=== PATIENT | female | born 1980 | race Caucasian/White ===

== ENCOUNTER 2019-12-14 08:19 | Inpatient (IN) ==
[2019-12-14 09:05] LABS: BASOPHILS % (AUTO) 0.5 % (0.2-1.0); HEMATOCRIT 47.4 % (36.0-47.0); HEMOGLOBIN 16.1 g/dL (12.0-16.0); LYMPHOCYTES # (AUTO) 1.2 X10^3/uL (1.3-2.9); LYMPHOCYTES % (AUTO) 20.8 % (21.0-51.0); MEAN CORPUSCULAR HEMOGLOBIN 30.1 pg (27.0-34.0); MEAN CORPUSCULAR HGB CONC 33.9 g/dL (33.0-35.0); MEAN CORPUSCULAR VOLUME 88.7 fL (80.0-100.0); MEAN PLATELET VOLUME 6.8 fL (7.4-11.0); MONOCYTES # (AUTO) 0.5 x10^3/uL (0.3-0.8); MONOCYTES % (AUTO) 7.8 % (0.0-13.0); NEUTROPHILS # (AUTO) 4.1 x10^3/uL (2.2-4.8); NEUTROPHILS % (AUTO) 70.9 % (42.0-75.0); PLATELET COUNT 262 X10^3/uL (150.0-450.0); RED BLOOD COUNT 5.35 X10^6/uL (3.5-5.4); WHITE BLOOD COUNT 5.8 X10^3/uL (3.6-10.0)
[2019-12-14 09:12] LABS: ALANINE AMINOTRANSFERASE 38 Units/L (12-78); ALBUMIN 3.6 g/dL (3.4-5.0); ALKALINE PHOSPHATASE 77 Units/L (46-116); ASPARTATE AMINO TRANSFERASE 30 Units/L (15-37); BLOOD UREA NITROGEN 10 mg/dL (7-18); CALCIUM 8.9 mg/dL (8.5-10.1); CARBON DIOXIDE 24.9 mmol/L (21-32); CHLORIDE 101 mmol/L (98-107); CREATININE 0.87 mg/dL (0.55-1.02); SODIUM 139 mmol/L (136-145); TOTAL PROTEIN 8.8 g/dL (6.4-8.2); eGFR NON BLACK RACES > 60 (>60)
[2019-12-14] MEDS ORDERED: PULMICORT NEB TX 0.5 MG NEB ONE (09:26)
--- NOTE | 2019-12-14 09:28 | RAD ---
HISTORYCOVID+STUDYCHEST, PA/LAT ADULTCOMPARISONNoneTECHNIQUETwo-view chestFINDINGSPatchy left perihilar opacity. Cardiac and mediastinal contours appear normal. No pleural effusion or pneumothorax.IMPRESSIONPatchy left parahilar opacity consistent with pneumonia such as covid 19.Electronically signed by: Balaji Johnson (Dec 14, 2019 09:26:38)
[2019-12-14] MEDS: PULMICORT NEB TX 0.5 MG NEB SCH ×2 (09:30→20:30)
[2019-12-14] MEDS: SOLU-Medrol 40 MG VIAL IVP SCH ×3 (10:00→21:47)
[2019-12-14] MEDS ORDERED: REMDESIVIR 200 MG in NS 250 ML IV 250 ML IV SCH (10:00)
[2019-12-14] MEDS ORDERED: NS 250 ML IV 250 ML IV ONE (10:08)
--- NOTE | 2019-12-14 10:28 | DR.H&P ---
H&P History & Physical for Day of: H&P Date: 12/14/19 Chief Complaint Chief Complaint: SHORTNESS OF BREATH GENERALIZED WEAKNESS Allergies Allergies Allergy/AdvReac Type Severity Reaction Status Date / Time No Known Drug Allergies Allergy Verified 12/14/19 09:19 [NKDA] History of Present Illness History of Present Illness: PT IS A 39 Y/O F DIRECTLY ADMITTED FROM [facility] FOR COVID19 PNEUMONIA AND HYPOXIA. SHE REPORTS TESTING POSITIVE ON SUNDAY. SINCE THEN HER SYMPTOMS OF COUGH, SHORTNESS OF BREATH, AND GENERALIZED WEAKNESS HAS BEEN GETTING WORSE. LABS/IMAGING: WBC 5.8, HGB 16.1, PLT 262, NA 139, K 3.2, CR 0.87, GLUC 109, CRP 56, CXR: Patchy left parahilar opacity consistent with pneumonia such as covid 19. PT IS REQUIRING 2L SUPPLEMENTAL O2. WILL GET CTA OF CHEST. WILL START PATIENT ON REMDESEVIR, SOLUMEDROL 80MG Q8H, DUONEBS, PULMICORT, RT, PNEUMONIA PROTOCOL. PT IS HYPOKALEMIC, REPLETE PER PROTOCOL. WILL CONTINUE TO MONITOR AND FOLLOW UP LABS/IMAGING IN THE MORNING. Social History Does patient currently use any type of tobacco product: No Have you used tobacco products in the last 12 months: No Type of Tobacco Use: None Medications Home Medications: No Known Drug Allergies [NKDA] Allergy (Verified 12/14/19 09:19) Labs Result Diagrams: 12/14/19 08:50 12/14/19 08:50 Labs: Laboratory WBC 5.8 X10^3/uL (3.6-10.0) 12/14/19 08:50 RBC 5.35 X10^6/uL (3.5-5.4) 12/14/19 08:50 Hgb 16.1 g/dL (12.0-16.0) H 12/14/19 08:50 Hct 47.4 % (36.0-47.0) H 12/14/19 08:50 MCV 88.7 fL (80.0-100.0) 12/14/19 08:50 MCH 30.1 pg (27.0-34.0) 12/14/19 08:50 MCHC 33.9 g/dL (33.0-35.0) 12/14/19 08:50 RDW 13.0 % (11.6-16.5) 12/14/19 08:50 Plt Count 262 X10^3/uL (150.0-450.0) 12/14/19 08:50 MPV 6.8 fL (7.4-11.0) L 12/14/19 08:50 Neut % (Auto) 70.9 % (42.0-75.0) 12/14/19 08:50 Lymph % (Auto) 20.8 % (21.0-51.0) L 12/14/19 08:50 Rankin % (Auto) 7.8 % (0.0-13.0) 12/14/19 08:50 Eos % (Auto) 0.0 % (0.9-2.9) L 12/14/19 08:50 Baso % (Auto) 0.5 % (0.2-1.0) 12/14/19 08:50 Neut # (Auto) 4.1 x10^3/uL (2.2-4.8) 12/14/19 08:50 Lymph # (Auto) 1.2 X10^3/uL (1.3-2.9) L 12/14/19 08:50 Rankin # (Auto) 0.5 x10^3/uL (0.3-0.8) 12/14/19 08:50 Eos # (Auto) 0.0 x10^3/uL (0.0-0.2) 12/14/19 08:50 Baso # (Auto) 0.0 X10^3/uL (0.0-0.1) 12/14/19 08:50 Absolute Nucleated RBC 0.0 /100WBC 12/14/19 08:50 Sodium 139 mmol/L (136-145) 12/14/19 08:50 Corrected Sodium TNP 12/14/19 08:50 Potassium 3.2 mmol/L (3.5-5.1) L 12/14/19 08:50 Chloride 101 mmol/L (98-107) 12/14/19 08:50 Carbon Dioxide 24.9 mmol/L (21-32) 12/14/19 08:50 BUN 10 mg/dL (7-18) 12/14/19 08:50 Creatinine 0.87 mg/dL (0.55-1.02) 12/14/19 08:50 Est GFR (MDRD) Af Amer > 60 (>60) 12/14/19 08:50 Est GFR (MDRD) Non-Af > 60 (>60) 12/14/19 08:50 Glucose 109 mg/dL (65-99) H 12/14/19 08:50 Calcium 8.9 mg/dL (8.5-10.1) 12/14/19 08:50 Corrected Calcium TNP 12/14/19 08:50 Ferritin 99 ng/mL (8-252) 12/14/19 08:50 Total Bilirubin 0.30 mg/dL (0.2-1.0) 12/14/19 08:50 AST 30 Units/L (15-37) 12/14/19 08:50 ALT 38 Units/L (12-78) 12/14/19 08:50 Alkaline Phosphatase 77 Units/L (46-116) 12/14/19 08:50 C-Reactive Protein 56.80 mg/L (0-3.0) H 12/14/19 08:50 Total Protein 8.8 g/dL (6.4-8.2) H 12/14/19 08:50 Albumin 3.6 g/dL (3.4-5.0) 12/14/19 08:50 Globulin 5.2 g/dL (2.5-4.5) H 12/14/19 08:50 Albumin/Globulin Ratio 0.7 Ratio (1.1-2.1) L 12/14/19 08:50 Review of Systems Constitutional: Chills and Weakness; denies Fever Eyes: No Symptoms Reported ENT: No Symptoms Reported Respiratory: Cough and Shortness of Breath Cardiovascular: No Symptoms Reported Gastrointestinal: No Symptoms Reported Genitourinary: No Symptoms Reported Musculoskeletal: No Symptoms Reported Skin: No Symptoms Reported Neurological: No Symptoms Reported Physical Exam Vital Signs: Temperature 98.2 F Pulse Rate 94 Respiratory Rate 20 Blood Pressure 148/82 O2 Sat by Pulse Oximetry 96 Oriented: Normal Eyes: Normal Ear: Normal Nose: Normal Throat: Normal Respiratory: Diminished Throughout, RLL Rales and LLL Rales Cardiovascular: Normal : Normal Auscultation: Bowel Sounds: Normal Palpation: Normal Tenderness: Normal Skin: Normal Musculoskeletal: Normal Psychiatric: Normal Mood Description: Calm and Appropriate Affect: Normal Speech Pattern: Clear and Appropriate Assessment/Plan (1) Pneumonia due to COVID-19 virus: Status: Acute Plan: IV Remdesivir, Solumedrol, Bronchodilators. Supplemental O2 (2) Hypokalemia: Status: Acute Plan: Replete per protocol Review H&P Reviewed: Yes Patient was examined?: Yes
[2019-12-14 10:37] VITALS: BMI 32.1
[2019-12-14] MEDS ORDERED: TUSSIONEX PENNKINETIC SUSP PO PRN ×2 (11:00→11:06)
[2019-12-14] MEDS ORDERED: POTASSIUM CHL 60 MEQ/NS 0.45% 500 ML IV PRN (11:42)
[2019-12-14] MEDS ORDERED: POTASSIUM CHL 40 MEQ/NS 0.45% 500 ML IV PRN (11:42)
[2019-12-14] MEDS ORDERED: MICRO K EXTEN CAP 10 MEQ PO PRN (11:42)
[2019-12-14] MEDS ORDERED: K-DUR TAB 20 MEQ PO PRN (11:42)
[2019-12-14] MEDS ORDERED: K-RIDER 10 MEQ/NS 100 ML 10 MEQ/100 ML BAG IV PRN (11:42)
[2019-12-14] MEDS ORDERED: POTASSIUM CHLORIDE LIQ 20 MEQ UDC PO PRN (11:42)
[2019-12-14] MEDS ORDERED: KLOR-CON PO PRN (11:42)
[2019-12-14] MEDS: DUONEB 0.5 MG/3 MG (3 mL) NEB SCH ×2 (13:30→20:30)
--- NOTE | 2019-12-14 16:10 | CT ---
HISTORYR/O PESTUDYCTA CHESTCOMPARISONNoneTECHNIQUEMultiple axial images of the chest were obtained from the thoracic inlet to the upper abdomen after the administration of IV contrast. 3D reconstructions utilizing axial MIPS imaging was performed and reviewed. Dose reduction techniques including Automated Exposure Control (AEC) and adjustment of mA and kV were utilized.FINDINGSThe mediastinum does not demonstrate significant pathological lymphadenopathy. There is no paracardial effusion observed. The thoracic aorta is normal in its contour without evidence for aneurysmal dilatation. The central pulmonary arterial system does not demonstrate central filling defects to suggest pulmonary emboli. The more distal branches are not well evaluated due to timing of the bolus.Evaluation of the lung parenchyma demonstrates a focal area of consolidation in the left lower lobe with some ground-glass opacities in the right lung base and scattered throughout the upper lobes bilaterally. These findings are compatible pneumonia possibly due to atypical viral etiologies although clinical correlation is requested. No pulmonary nodule or mass can be identified. The bony thorax is unremarkable in its appearance . The visualized portions of the upper abdomen are grossly unremarkable .IMPRESSIONMultifocal pneumonia as above. No pulmonary embolus can be identified although the more distal branches are not well evaluated due to timing of the bolus..Electronically signed by: RADHA YAO (Dec 14, 2019 16:08:33)
[2019-12-15 04:32] LABS: ABG ALLEN TEST POS; ABG BASE EXCESS -0.2 mmol/L (-2.0-2.0)
[2019-12-15] MEDS: DUONEB 0.5 MG/3 MG (3 mL) NEB SCH ×3 (05:02→21:32)
[2019-12-15] MEDS: SOLU-Medrol 40 MG VIAL IVP SCH ×3 (05:08→21:22)
[2019-12-15 05:25] LABS: BASOPHILS % (AUTO) 0.1 % (0.2-1.0); HEMATOCRIT 44.6 % (36.0-47.0); HEMOGLOBIN 14.8 g/dL (12.0-16.0); LYMPHOCYTES # (AUTO) 0.7 X10^3/uL (1.3-2.9); LYMPHOCYTES % (AUTO) 11.4 % (21.0-51.0); MEAN CORPUSCULAR HGB CONC 33.2 g/dL (33.0-35.0); MEAN CORPUSCULAR VOLUME 90.3 fL (80.0-100.0); MEAN PLATELET VOLUME 7.6 fL (7.4-11.0); MONOCYTES # (AUTO) 0.3 x10^3/uL (0.3-0.8); MONOCYTES % (AUTO) 4.2 % (0.0-13.0); NEUTROPHILS # (AUTO) 5.4 x10^3/uL (2.2-4.8); NEUTROPHILS % (AUTO) 84.3 % (42.0-75.0); PLATELET COUNT 271 X10^3/uL (150.0-450.0); RED BLOOD COUNT 4.93 X10^6/uL (3.5-5.4); RED CELL DISTRIBUTION WIDTH 12.9 % (11.6-16.5); WHITE BLOOD COUNT 6.4 X10^3/uL (3.6-10.0)
--- NOTE | 2019-12-15 05:43 | RAD ---
HISTORYPNEUMONIASTUDYCHEST, 1 [id number]/2020FINDINGSThe trachea is midline. The cardiac silhouette is unremarkable. Left lower lobe pneumonia. No pneumothorax.. The bony thorax is unremarkable.IMPRESSIONLeft lower lobe pneumoniaElectronically signed by: Fernando Hussein (Dec 15, 2019 05:41:48)
[2019-12-15 05:59] LABS: ALANINE AMINOTRANSFERASE 37 Units/L (12-78); ALKALINE PHOSPHATASE 72 Units/L (46-116); ASPARTATE AMINO TRANSFERASE 29 Units/L (15-37); BLOOD UREA NITROGEN 13 mg/dL (7-18); CALCIUM 8.8 mg/dL (8.5-10.1); CARBON DIOXIDE 25.1 mmol/L (21-32); CHLORIDE 103 mmol/L (98-107); COR CA(FOR HYPOALB) 9.6 mg/dL (8.5-10.1); COR NA(FOR HYPERGLY) 139 mmol/L (136-145); CREATININE 0.76 mg/dL (0.55-1.02); SODIUM 137 mmol/L (136-145); eGFR NON BLACK RACES > 60 (>60)
[2019-12-15] MEDS: PULMICORT NEB TX 0.5 MG NEB SCH ×2 (08:26→21:31)
[2019-12-15] MEDS: TESSALON PERLES PO SCH ×3 (10:36→21:22)
[2019-12-15] MEDS: LEVAQUIN PREMIX IV 750 MG 750 MG/150 ML BAG IV SCH (10:36)
[2019-12-15] MEDS: LOVENOX INJ 40 MG SYR SC SCH (10:36)
--- NOTE | 2019-12-15 11:02 | PCM.PROG ---
Progress Note - Progress Note for Day of Date of Exam: 12/15/19 - Subjective Subjective: IS BEING TREATED FOR PNEUMONIA DUE TO COVID-19. TODAY, SHE IS ALERT AND ORIENTED, LYING IN BED ON MORNING ROUNDS. SHE CONTINUES WITH COMPLAINTS OF COUGH, SHORTNESS OF BREATH, AND WEAKNESS THIS MORNING. SHE IS CURRENTLY UTILIZING OXYGEN VIA NASAL CANNULA AT 2 LITERS/MINUTE. ON EXAMINATION, HEART IS REGULAR IN RATE AND RHYTHM. BILATERAL LUNGS ARE NOTED WITH SCATTERED WHEEZING THROUGHOUT. ABDOMEN IS ROUND, SOFT, AND NON-TENDER WITH NORMAL BOWEL SOUNDS NOTED IN ALL QUADRANTS. HIS VITALS THIS MORNING ARE: 98.9-92-20-97%-130/76. LABS WERE OBTAINED. ABNORMAL LAB VALUES INCLUDE THE FOLLOWING: GLUCOSE 163, CRP 50.50, ALBUMIN 3.0, GLOBULIN 5.0. ABG OBTAINED THIS MORNING AND REVEALED: PH 7.420, PC02 37.0, P02 70, HC03 24.0, 02 SAT 94, FI02 28.0. A CHEST XRAY WAS OBTAINED THIS MORNING AND REVEALED: Left lower lobe pneumonia. A CHEST CTA WAS OBTAINED ON ADMISSION AND REVEALED: Multifocal pneumonia. No pulmonary embolus can be identified although the more distal branches are not well evaluated due to timing of the bolus. SHE IS CURRENTLY RECEIVING LEVAQUIN 750MG IV DAILY, REMDESIVIR 250MG IV DAILY, ACTEMRA 400MG IV X 1 DOSE, DUONEBS TID, PULMICORT NEBS BID, TESSALON PERLES 200MG PO TID, TUSSIONEX 5ML PO Q12H, SOLU-MEDROL 80MG IV Q8H, AND THE POTASSIUM PROTOCOLS. WE WILL CON TINUE WITH CURRENT PLAN OF CARE TODAY. OTHERWISE, WE PLAN TO FOLLOW UP WITH AM LABS AND CHEST XRAY AND CONTINUE TO MONITOR. - Past Medical Family Social History Past Med/Fam/Surg Hx: No changes since H&P Allergies: Allergies No Known Drug Allergies [NKDA] Allergy (Verified 12/14/19 09:19) - Review of Systems ROS: No change since H&P - Vital Signs and I&O's Vital Signs: Temperature 98.9 F Pulse Rate 100 Respiratory Rate 20 Blood Pressure 128/78 O2 Sat by Pulse Oximetry 93 Intake and Output: Intake & Output 12/12/19 12/13/19 12/14/19 12/15/19 11:59 11:59 11:59 11:59 Intake Total 5 / 925 Balance / 5 - Physical Exam Oriented: Normal Eyes: Normal Ear: Normal Nose: Normal Throat: Normal Respiratory: Generalized, Diminished, Wheezes Cardiovascular: Normal : Normal Auscultation: Bowel Sounds: Normal Palpation: Normal Tenderness: Normal Skin: Normal Musculoskeletal: Normal Psychiatric: Normal Mood Description: Calm, Appropriate Affect: Normal Speech Pattern: Clear, Appropriate - Laboratory and Diagnostics Result Diagrams: 12/15/19 04:23 12/15/19 04:23 Labs: Laboratory WBC 6.4 X10^3/uL (3.6-10.0) 12/15/19 04:23 RBC 4.93 X10^6/uL (3.5-5.4) 12/15/19 04:23 Hgb 14.8 g/dL (12.0-16.0) 12/15/19 04:23 Hct 44.6 % (36.0-47.0) 12/15/19 04:23 MCV 90.3 fL (80.0-100.0) 12/15/19 04:23 MCH 30.0 pg (27.0-34.0) 12/15/19 04:23 MCHC 33.2 g/dL (33.0-35.0) 12/15/19 04:23 RDW 12.9 % (11.6-16.5) 12/15/19 04:23 Plt Count 271 X10^3/uL (150.0-450.0) 12/15/19 04:23 MPV 7.6 fL (7.4-11.0) 12/15/19 04:23 Neut % (Auto) 84.3 % (42.0-75.0) H 12/15/19 04:23 Lymph % (Auto) 11.4 % (21.0-51.0) L 12/15/19 04:23 Trinity % (Auto) 4.2 % (0.0-13.0) 12/15/19 04:23 Eos % (Auto) 0.0 % (0.9-2.9) L 12/15/19 04:23 Baso % (Auto) 0.1 % (0.2-1.0) L 12/15/19 04:23 Neut # (Auto) 5.4 x10^3/uL (2.2-4.8) H 12/15/19 04:23 Lymph # (Auto) 0.7 X10^3/uL (1.3-2.9) L 12/15/19 04:23 Trinity # (Auto) 0.3 x10^3/uL (0.3-0.8) 12/15/19 04:23 Eos # (Auto) 0.0 x10^3/uL (0.0-0.2) 12/15/19 04:23 Baso # (Auto) 0.0 X10^3/uL (0.0-0.1) 12/15/19 04:23 Absolute Nucleated RBC 0.1 /100WBC 12/15/19 04:23 Sample Site Lr 12/15/19 05:00 ABG pH 7.420 (7.35-7.45) 12/15/19 05:00 ABG pCO2 37.0 mmHg (35.0-45.0) 12/15/19 05:00 ABG pO2 70.0 mmHg (80.0-100.0) L 12/15/19 05:00 ABG HCO3 24.0 mmol/L (22-26) 12/15/19 05:00 ABG O2 Saturation 94.0 % (90-100) 12/15/19 05:00 ABG Base Excess -0.2 mmol/L (-2.0-2.0) 12/15/19 05:00 Baljeet Test Pos 12/15/19 05:00 A-a Gradient 83.0 mmHg 12/15/19 05:00 FiO2 28.0 12/15/19 05:00 Blood Gas Comments Augustus well sw 12/15/19 05:00 Sodium 137 mmol/L (136-145) 12/15/19 04:23 Corrected Sodium 139 mmol/L (136-145) 12/15/19 04:23 Potassium 3.9 mmol/L (3.5-5.1) 12/15/19 04:23 Chloride 103 mmol/L (98-107) 12/15/19 04:23 Carbon Dioxide 25.1 mmol/L (21-32) 12/15/19 04:23 BUN 13 mg/dL (7-18) 12/15/19 04:23 Creatinine 0.76 mg/dL (0.55-1.02) 12/15/19 04:23 Est GFR (MDRD) Af Amer > 60 (>60) 12/15/19 04:23 Est GFR (MDRD) Non-Af > 60 (>60) 12/15/19 04:23 Glucose 163 mg/dL (65-99) H 12/15/19 04:23 Calcium 8.8 mg/dL (8.5-10.1) 12/15/19 04:23 Corrected Calcium 9.6 mg/dL (8.5-10.1) 12/15/19 04:23 Magnesium 2.0 mg/dL (1.7-2.9) 12/15/19 04:23 Ferritin 99 ng/mL (8-252) 12/14/19 08:50 Total Bilirubin 0.20 mg/dL (0.2-1.0) 12/15/19 04:23 AST 29 Units/L (15-37) 12/15/19 04:23 ALT 37 Units/L (12-78) 12/15/19 04:23 Alkaline Phosphatase 72 Units/L (46-116) 12/15/19 04:23 C-Reactive Protein 50.50 mg/L (0-3.0) H 12/15/19 04:23 Total Protein 8.0 g/dL (6.4-8.2) 12/15/19 04:23 Albumin 3.0 g/dL (3.4-5.0) L 12/15/19 04:23 Globulin 5.0 g/dL (2.5-4.5) H 12/15/19 04:23 Albumin/Globulin Ratio 0.6 Ratio (1.1-2.1) L 12/15/19 04:23 - Plan (1) Pneumonia due to COVID-19 virus Status: Acute Plan: LEVAQUIN 750MG IV DAILY, REMDESIVIR 250MG IV DAILY, ACTEMRA 400MG IV X 1 DOSE, DUONEBS TID, PULMICORT NEBS BID, TESSALON PERLES 200MG PO TID, TUSSIONEX 5ML PO Q12H, SOLU-MEDROL 80MG IV Q8H, AND THE POTASSIUM PROTOCOLS. (2) Hypokalemia Status: Acute Plan: Replete per protocol
[2019-12-15] MEDS: TUSSIONEX PENNKINETIC SUSP PO SCH ×2 (11:35→21:22)
[2019-12-15] MEDS ORDERED: ACTEMRA 400 MG in NS 100 ML IV 80 ML IV SCH (14:00)
[2019-12-15] MEDS: REMDESIVIR 100 MG in NS 250 ML IV 250 ML IV SCH (15:12)
[2019-12-15] MEDS: PATIENT'S HOME MEDICATION PV SCH (21:20)
[2019-12-15] MEDS: PROGESTERONE MICRONIZED 400 MG PO SCH (21:22)
[2019-12-16 05:13] LABS: BASOPHILS % (AUTO) 0.1 % (0.2-1.0); HEMOGLOBIN 14.7 g/dL (12.0-16.0); LYMPHOCYTES # (AUTO) 0.9 X10^3/uL (1.3-2.9); LYMPHOCYTES % (AUTO) 10.8 % (21.0-51.0); MEAN CORPUSCULAR HEMOGLOBIN 30.1 pg (27.0-34.0); MEAN CORPUSCULAR HGB CONC 33.4 g/dL (33.0-35.0); MEAN CORPUSCULAR VOLUME 89.9 fL (80.0-100.0); MEAN PLATELET VOLUME 7.4 fL (7.4-11.0); MONOCYTES # (AUTO) 0.4 x10^3/uL (0.3-0.8); MONOCYTES % (AUTO) 5.3 % (0.0-13.0); NEUTROPHILS # (AUTO) 6.7 x10^3/uL (2.2-4.8); NEUTROPHILS % (AUTO) 83.8 % (42.0-75.0); PLATELET COUNT 318 X10^3/uL (150.0-450.0); RED CELL DISTRIBUTION WIDTH 12.9 % (11.6-16.5)
[2019-12-16 05:28] LABS: ALANINE AMINOTRANSFERASE 83 Units/L (12-78); ALBUMIN 2.8 g/dL (3.4-5.0); ALKALINE PHOSPHATASE 74 Units/L (46-116); ASPARTATE AMINO TRANSFERASE 56 Units/L (15-37); BLOOD UREA NITROGEN 17 mg/dL (7-18); CALCIUM 8.8 mg/dL (8.5-10.1); CARBON DIOXIDE 25.9 mmol/L (21-32); CHLORIDE 104 mmol/L (98-107); COR CA(FOR HYPOALB) 9.8 mg/dL (8.5-10.1); COR NA(FOR HYPERGLY) 139 mmol/L (136-145); CREATININE 0.71 mg/dL (0.55-1.02); SODIUM 138 mmol/L (136-145); TOTAL PROTEIN 7.7 g/dL (6.4-8.2); eGFR NON BLACK RACES > 60 (>60)
[2019-12-16] MEDS: TESSALON PERLES PO SCH ×3 (06:05→22:05)
[2019-12-16] MEDS: SOLU-Medrol 40 MG VIAL IVP SCH ×3 (06:05→22:05)
--- NOTE | 2019-12-16 06:06 | RAD ---
HISTORYSOBSTUDYCHEST, 1 [id number] view of the chestFINDINGSCardiac and mediastinal contours are within normal limits. Stable bilateral airspace disease, worse in the left lower lung. No pleural effusion or pneumothorax.IMPRESSIONNo significant change in airspace disease consistent with pneumonia.Electronically signed by: Balaji Johnson (Dec 16, 2019 06:05:24)
[2019-12-16] MEDS: DUONEB 0.5 MG/3 MG (3 mL) NEB SCH ×3 (06:25→21:05)
[2019-12-16] MEDS: PULMICORT NEB TX 0.5 MG NEB SCH ×2 (09:15→21:10)
[2019-12-16] MEDS: ESTRACE PO SCH (09:27)
[2019-12-16] MEDS: LEVAQUIN PREMIX IV 750 MG 750 MG/150 ML BAG IV SCH (09:28)
[2019-12-16] MEDS: LOVENOX INJ 40 MG SYR SC SCH (09:28)
[2019-12-16] MEDS: TUSSIONEX PENNKINETIC SUSP PO SCH ×2 (09:29→22:05)
[2019-12-16] MEDS: REMDESIVIR 100 MG in NS 250 ML IV 250 ML IV SCH (11:00)
--- NOTE | 2019-12-16 20:29 | PCM.PROG ---
Progress Note - Progress Note for Day of Date of Exam: 12/16/19 - Subjective Subjective: IS BEING TREATED FOR PNEUMONIA DUE TO COVID-19. TODAY, SHE IS ALERT AND ORIENTED, LYING IN BED ON MORNING ROUNDS. SHE CONTINUES WITH COMPLAINTS OF COUGH, SHORTNESS OF BREATH, AND WEAKNESS THIS MORNING. SHE DENIES SIGNIFICANT IMPROVEMENT IN SYMPTOMS SINCE ONE DAY PRIOR. SHE IS CURRENTLY UTILIZING OXYGEN VIA NASAL CANNULA AT 2 LITERS/MINUTE. ON EXAMINATION, HEART IS REGULAR IN RATE AND RHYTHM. BILATERAL LUNGS ARE NOTED WITH SCATTERED WHEEZING THROUGHOUT. ABDOMEN IS ROUND, SOFT, AND NON-TENDER WITH NORMAL BOWEL SOUNDS NOTED IN ALL QUADRANTS. HIS VITALS THIS MORNING ARE: 98.9-92-20-97%-130/76. LABS WERE OBTAINED. ABNORMAL LAB VALUES INCLUDE THE FOLLOWING: GLUCOSE 145, AST 56, ALT 83, CRP 17.90, ALBUMIN 2.8, GLOBULIN 4.9. A CHEST XRAY WAS OBTAINED THIS MORNING AND REVEALED: Cardiac and mediastinal contours are within normal limits. Stable bilateral airspace disease, worse in the left lower lung. No pleural effusion or pneumothorax. SHE IS CURRENTLY RECEIVING LEVAQUIN 750MG IV DAILY, REMDESIVIR 100MG IV DAILY, DUONEBS TID, PULMICORT NEBS BID, TESSALON PERLES 200MG PO TID, TUSSIONEX 5ML PO Q12H, SOLU-MEDROL 80MG IV Q8H, AND THE POTASSIUM PROTOCOLS. WE WILL CONTINUE WITH CURRENT PLAN OF CARE TODAY. OTHERWISE, WE PLAN TO FOLLOW UP WITH AM LABS AND CHEST XRAY AND CONTINUE TO MONITOR. - Past Medical Family Social History Past Med/Fam/Surg Hx: No changes since H&P Allergies: Allergies No Known Drug Allergies [NKDA] Allergy (Verified 12/14/19 09:19) - Review of Systems ROS: No change since H&P - Vital Signs and I&O's Vital Signs: Temperature 98.3 F Pulse Rate 85 Respiratory Rate 20 Blood Pressure 134/76 O2 Sat by Pulse Oximetry 91 Intake and Output: Intake & Output 12/14/19 12/15/19 12/16/19 12/17/19 11:59 11:59 11:59 11:59 Intake Total 925 / 925 3494 / 3494 1919 Balance 925 / 925 3494 / 3494 1919 - Physical Exam Oriented: Normal Eyes: Normal Ear: Normal Nose: Normal Throat: Normal Respiratory: Generalized, Diminished, Wheezes Cardiovascular: Normal : Normal Auscultation: Bowel Sounds: Normal Tenderness: Normal Skin: Normal Musculoskeletal: Normal Psychiatric: Normal Mood Description: Calm, Appropriate Affect: Normal Speech Pattern: Clear, Appropriate - Laboratory and Diagnostics Result Diagrams: 12/16/19 04:40 12/16/19 04:40 Labs: Laboratory WBC 8.0 X10^3/uL (3.6-10.0) 12/16/19 04:40 RBC 4.90 X10^6/uL (3.5-5.4) 12/16/19 04:40 Hgb 14.7 g/dL (12.0-16.0) 12/16/19 04:40 Hct 44.0 % (36.0-47.0) 12/16/19 04:40 MCV 89.9 fL (80.0-100.0) 12/16/19 04:40 MCH 30.1 pg (27.0-34.0) 12/16/19 04:40 MCHC 33.4 g/dL (33.0-35.0) 12/16/19 04:40 RDW 12.9 % (11.6-16.5) 12/16/19 04:40 Plt Count 318 X10^3/uL (150.0-450.0) 12/16/19 04:40 MPV 7.4 fL (7.4-11.0) 12/16/19 04:40 Neut % (Auto) 83.8 % (42.0-75.0) H 12/16/19 04:40 Lymph % (Auto) 10.8 % (21.0-51.0) L 12/16/19 04:40 [place] % (Auto) 5.3 % (0.0-13.0) 12/16/19 04:40 Eos % (Auto) 0.0 % (0.9-2.9) L 12/16/19 04:40 Baso % (Auto) 0.1 % (0.2-1.0) L 12/16/19 04:40 Neut # (Auto) 6.7 x10^3/uL (2.2-4.8) H 12/16/19 04:40 Lymph # (Auto) 0.9 X10^3/uL (1.3-2.9) L 12/16/19 04:40 [place] # (Auto) 0.4 x10^3/uL (0.3-0.8) 12/16/19 04:40 Eos # (Auto) 0.0 x10^3/uL (0.0-0.2) 12/16/19 04:40 Baso # (Auto) 0.0 X10^3/uL (0.0-0.1) 12/16/19 04:40 Absolute Nucleated RBC 0.0 /100WBC 12/16/19 04:40 Sample Site Lr 12/15/19 05:00 ABG pH 7.420 (7.35-7.45) 12/15/19 05:00 ABG pCO2 37.0 mmHg (35.0-45.0) 12/15/19 05:00 ABG pO2 70.0 mmHg (80.0-100.0) L 12/15/19 05:00 ABG HCO3 24.0 mmol/L (22-26) 12/15/19 05:00 ABG O2 Saturation 94.0 % (90-100) 12/15/19 05:00 ABG Base Excess -0.2 mmol/L (-2.0-2.0) 12/15/19 05:00 Baljeet Test Pos 12/15/19 05:00 A-a Gradient 83.0 mmHg 12/15/19 05:00 FiO2 28.0 12/15/19 05:00 Blood Gas Comments Augustus well sw 12/15/19 05:00 Sodium 138 mmol/L (136-145) 12/16/19 04:40 Corrected Sodium 139 mmol/L (136-145) 12/16/19 04:40 Potassium 4.0 mmol/L (3.5-5.1) 12/16/19 04:40 Chloride 104 mmol/L (98-107) 12/16/19 04:40 Carbon Dioxide 25.9 mmol/L (21-32) 12/16/19 04:40 BUN 17 mg/dL (7-18) 12/16/19 04:40 Creatinine 0.71 mg/dL (0.55-1.02) 12/16/19 04:40 Est GFR (MDRD) Af Amer > 60 (>60) 12/16/19 04:40 Est GFR (MDRD) Non-Af > 60 (>60) 12/16/19 04:40 Glucose 145 mg/dL (65-99) H 12/16/19 04:40 Calcium 8.8 mg/dL (8.5-10.1) 12/16/19 04:40 Corrected Calcium 9.8 mg/dL (8.5-10.1) 12/16/19 04:40 Magnesium 2.0 mg/dL (1.7-2.9) 12/15/19 04:23 Ferritin 142 ng/mL (8-252) 12/16/19 04:40 Total Bilirubin 0.20 mg/dL (0.2-1.0) 12/16/19 04:40 AST 56 Units/L (15-37) H 12/16/19 04:40 ALT 83 Units/L (12-78) H 12/16/19 04:40 Alkaline Phosphatase 74 Units/L (46-116) 12/16/19 04:40 C-Reactive Protein 17.90 mg/L (0-3.0) H 12/16/19 04:40 Total Protein 7.7 g/dL (6.4-8.2) 12/16/19 04:40 Albumin 2.8 g/dL (3.4-5.0) L 12/16/19 04:40 Globulin 4.9 g/dL (2.5-4.5) H 12/16/19 04:40 Albumin/Globulin Ratio 0.6 Ratio (1.1-2.1) L 12/16/19 04:40 - Plan (1) Pneumonia due to COVID-19 virus Status: Acute Plan: LEVAQUIN 750MG IV DAILY, REMDESIVIR 100MG IV DAILY, DUONEBS TID, PULMICORT NEBS BID, TESSALON PERLES 200MG PO TID, TUSSIONEX 5ML PO Q12H, SOLU-MEDROL 80MG IV Q8H, AND THE POTASSIUM PROTOCOLS. (2) Hypokalemia Status: Acute Plan: Replete per protocol
[2019-12-16] MEDS: PATIENT'S HOME MEDICATION PV SCH (20:49)
[2019-12-16] MEDS: PROGESTERONE MICRONIZED 400 MG PO SCH (20:50)
--- NOTE | 2019-12-17 05:15 | RAD ---
HISTORYSOBSTUDYCHEST, 1 [id number]/2020FINDINGSThe trachea is midline. The cardiac silhouette is unremarkable. Stable bilateral airspace disease left greater than right. No pleural effusion or pneumothorax.. The bony thorax is unremarkable.IMPRESSIONStable bilateral airspace disease, left greater than rightElectronically signed by: Fernando Hussein (Dec 17, 2019 05:13:47)
[2019-12-17 05:25] LABS: BASOPHILS % (AUTO) 0 % (0.2-1.0); HEMATOCRIT 41.7 % (36.0-47.0); HEMOGLOBIN 14.1 g/dL (12.0-16.0); LYMPHOCYTES # (AUTO) 0.8 X10^3/uL (1.3-2.9); LYMPHOCYTES % (AUTO) 9.4 % (21.0-51.0); MEAN CORPUSCULAR HEMOGLOBIN 30.3 pg (27.0-34.0); MEAN CORPUSCULAR HGB CONC 33.7 g/dL (33.0-35.0); MEAN CORPUSCULAR VOLUME 89.7 fL (80.0-100.0); MEAN PLATELET VOLUME 7.2 fL (7.4-11.0); MONOCYTES # (AUTO) 0.4 x10^3/uL (0.3-0.8); MONOCYTES % (AUTO) 5.1 % (0.0-13.0); NEUTROPHILS # (AUTO) 7.2 x10^3/uL (2.2-4.8); NEUTROPHILS % (AUTO) 85.5 % (42.0-75.0); PLATELET COUNT 331 X10^3/uL (150.0-450.0); RED BLOOD COUNT 4.65 X10^6/uL (3.5-5.4); RED CELL DISTRIBUTION WIDTH 12.8 % (11.6-16.5); WHITE BLOOD COUNT 8.4 X10^3/uL (3.6-10.0)
[2019-12-17 05:40] LABS: ALANINE AMINOTRANSFERASE 84 Units/L (12-78); ALBUMIN 2.6 g/dL (3.4-5.0); ALKALINE PHOSPHATASE 65 Units/L (46-116); ASPARTATE AMINO TRANSFERASE 37 Units/L (15-37); BLOOD UREA NITROGEN 17 mg/dL (7-18); CARBON DIOXIDE 26.2 mmol/L (21-32); CHLORIDE 104 mmol/L (98-107); COR CA(FOR HYPOALB) 9.1 mg/dL (8.5-10.1); COR NA(FOR HYPERGLY) 139 mmol/L (136-145); CREATININE 0.72 mg/dL (0.55-1.02); SODIUM 138 mmol/L (136-145); eGFR NON BLACK RACES > 60 (>60)
[2019-12-17] MEDS: TESSALON PERLES PO SCH (05:42)
[2019-12-17] MEDS: SOLU-Medrol 40 MG VIAL IVP SCH (05:42)
[2019-12-17] MEDS: DUONEB 0.5 MG/3 MG (3 mL) NEB SCH ×2 (06:15→13:25)
[2019-12-17] MEDS ORDERED: REMDESIVIR IV ONE (09:16)
[2019-12-17] MEDS: TUSSIONEX PENNKINETIC SUSP PO SCH (09:19)
[2019-12-17] MEDS: ESTRACE PO SCH (09:20)
[2019-12-17] MEDS: LOVENOX INJ 40 MG SYR SC SCH (09:43)
[2019-12-17 09:53] VITALS: BP 152/78
[2019-12-17] MEDS: PULMICORT NEB TX 0.5 MG NEB SCH (09:58)
[2019-12-17] MEDS: LEVAQUIN PREMIX IV 750 MG 750 MG/150 ML BAG IV SCH (11:30)
[2019-12-17 13:14] LABS: ABG BASE EXCESS 2.1 mmol/L (-2.0-2.0); ABG HCO3 25.1 mmol/L (22-26)
[2019-12-17] MEDS ORDERED: REMDESIVIR 100 MG in NS 250 ML IV 250 ML IV ONE (13:44)
[2019-12-17] MEDS: REMDESIVIR 100 MG in NS 250 ML IV 250 ML IV SCH (13:54)
== END 2019-12-17 13:45 | disposition home or self-care (01) | DRG 177 ==
LOC: ICU
PROVIDERS: ADMIT Internal Medicine; ATTEND Internal Medicine
DX: R79.82 Elevated C-reactive protein (CRP); J12.89 Other viral pneumonia; U07.1 COVID-19; R06.02 Shortness of breath; E87.6 Hypokalemia